=== PATIENT | female | born 1980 | race Caucasian/White ===

== ENCOUNTER 2017-05-26 12:18 | Emergency (ER) | payer SELFPAY ==
--- NOTE | 2017-05-26 14:42 | RAD ---
CHEST ONE VIEW: HISTORY: A 37-year-old female with cough, congestion, fever, and neck pain. COMPARISON: 12/28/2012 FINDINGS: Heart size is normal. There is an approximately 0.9 cm in diameter somewhat nodular opacity overlyi ng the left fifth anterior rib. It is conceivable that this could represent a confluence of shadows , but the possibility of a developing pulmonary nodule cannot be excluded. This was not seen on truong or chest films. No pleural effusion. No evidence for pneumonia. IMPRESSION: 1. No evidence for pneumonia or pleural effusion. 2. An approximately 0.9 cm in diameter potential pulmonary nodule over the left lower mid lung zone , overlying the left fifth anterior rib. Consider short-term follow-up upright PA and lateral chest. If this nodular density persists on amber t study, then a follow-up chest CT scan would probably be indicated. POS: [facility]
[2017-05-26] MEDS ORDERED: Azithromycin 250 MG TAB ONE (15:08)
[2017-05-26] MEDS ORDERED: Acetaminophen 500 MG TAB ONE (15:08)
== END 2017-05-26 16:59 | disposition home or self-care (01) ==
LOC: ERS 12:18
DX: J40 Bronchitis, not specified as acute or chronic (principal); E86.0 Dehydration; R91.1 Solitary pulmonary nodule; F32.9 Major depressive disorder, single episode, unspecified
CPT/HCPCS: 71010; 87081; 87430; 93005; 96360

== ENCOUNTER 2017-10-29 19:13 | Emergency (ER) | payer SELFPAY ==
[2017-10-29 19:40] LABS: #Basophils 0.1 thou/uL (0.0-0.2); #Eosinphils 0.3 thou/uL (0.0-0.7); #Lymphocytes 3.3 thou/uL (1.20-3.40); #Monocytes 0.8 thou/uL (0.11-0.59); #Neutrophils 7.5 thou/uL (1.40-6.50); %Basophils 1.1 % (0.0-1.0); %Eosinophils 2.1 % (0.0-10.0); %Lymphocytes 27.8 % (21.0-51.0); %Monocytes 6.7 % (0.0-10.0); %Neutrophils 62.2 % (42.0-75.0); Hemoglobin 14.7 g/dL (12.0-16.0); Mean Corpuscular HGB CONC 35.4 g/dL (32.0-36.0); Mean Corpuscular Hemoglobin 31.6 pg (27.0-31.0); Mean Corpuscular Volume 89.3 fl (81.0-99.0); Mean Platelet Volume 6.8 fL (7.4-10.4); Platelet Count 333 thou/uL (130-400); RBC Distribution Width 11.6 % (11.5-14.5); Red Blood Cell (RBC) Count 4.65 mill/uL (4.20-5.40)
[2017-10-29 20:03] LABS: ALT (SGPT) 28 U/L (8-55); AST (SGOT) 18 U/L (5-34); Albumin 4.3 g/dL (3.5-5.0); Alkaline Phosphatase 70 U/L (40-150); Anion Gap 14 mmol/L (10-20); BUN (Urea Nitrogen) 10 mg/dL (7.0-18.7); Bilirubin, Total 0.3 mg/dL (0.2-1.2); CK (CPK) 65 U/L (29-168); Calc. Creatinine Clearance 0 mL/min (70-130); Calcium 9.9 mg/dL (7.8-10.44); Carbon Dioxide 25 mmol/L (22-29); Chloride 104 mmol/L (98-107); Estimated GFR-MDRD 80; Globulin 3.2 g/dL (2.4-3.5); Glucose 102 mg/dL (70-105); Potassium 3.9 mmol/L (3.5-5.1); Protein, Total 7.5 g/dL (6.0-8.3); Sodium 139 mmol/L (136-145)
--- NOTE | 2017-10-29 20:03 | RAD ---
AP VIEW OF THE CHEST: 10/29/17 INDICATION: Fall with right shoulder pain. FINDINGS: The lungs are clear. Cardiomediastinal silhouette is within normal limits. No acute osseous abnormali ty is evident. Left costophrenic angle is excluded. IMPRESSION: No acute cardiopulmonary abnormality. POS: [facility]
[2017-10-29 20:08] LABS: CKMB 0.7 ng/mL (0-6.6); Troponin I Less than 0.010 ng/mL (< 0.028)
[2017-10-29] MEDS ORDERED: Acetaminophen 500 MG TAB ONE (20:13)
[2017-10-29 20:22] LABS: BHCG - Serum Negative (NEGATIVE); Pregs Control Background? CLEAR/WHITE (CLR/WHITE); Pregs Control Bar Appear? YES (CONTROL BAR)
[2017-10-29] MEDS ORDERED: Ketorolac Tromethamine 30 MG/ML VIAL ONE (20:59)
--- NOTE | 2017-11-07 00:26 | EKG ---
Test Reason : Blood Pressure : / mmHG Vent. Rate : 081 BPM Atrial Rate : 081 BPM P-R Int : 168 ms QRS Dur : 082 ms QT Int : 376 ms P-R-T Axes : 027 012 009 degrees QTc Int : 436 ms Normal sinus rhythm Nonspecific T wave abnormality Abnormal ECG Confirmed by IMANI FRENCH ([id number]), photography editor VARGAS SYED ([id number]) on 11/07/2017 12:25:08 AM Referred By: Confirmed By:IMANI FRENCH
== END 2017-10-29 21:41 | disposition home or self-care (01) ==
LOC: ERS 19:13
DX: R07.89 Other chest pain (principal); J40 Bronchitis, not specified as acute or chronic; F32.9 Major depressive disorder, single episode, unspecified
CPT/HCPCS: 71045; 80053; 82550; 82553; 84484; 84703; 85025; 85379; 93005; 96374; J1885

== ENCOUNTER 2017-12-20 14:19 | Outpatient (CLI) | payer BC, OTHER | END 2017-12-20 14:20 | disposition home or self-care (01) | LOC: BICCT 14:19 | PROVIDERS: ATTEND Internal Medicine Pulmonary Disease | DX: R91.8 Other nonspecific abnormal finding of lung field (principal) | CPT/HCPCS: 71250 ==

== ENCOUNTER 2018-04-19 22:28 | Emergency (ER) | payer BC ==
--- NOTE | 2018-04-19 23:16 | RAD ---
AP VIEW CHEST: 04/19/18 HISTORY: Headache, fever, congestion, cough. AP view chest is obtained on 04/19/18. Comparison made to previous exam from 10/29/17. AP view chest demonstrates the lungs to be well aerated. No evidence of active intrathoracic disease seen. No evidence of effusions, pneumonia or pneumothorax seen. IMPRESSION: Unremarkable AP view chest. POS: [facility]
== END 2018-04-20 00:30 | disposition home or self-care (01) ==
LOC: ERS 22:28
DX: J06.9 Acute upper respiratory infection, unspecified (principal)
CPT/HCPCS: 71045

== ENCOUNTER 2018-07-05 19:40 | Emergency (ER) | payer BC ==
[2018-07-05] MEDS ORDERED: Diabetic Tussin DM 5 ML UDCUP PO SCH (20:30)
[2018-07-05 20:44] LABS: #Basophils 0.1 thou/uL (0.0-0.2); #Eosinphils 0.3 thou/uL (0.0-0.7); #Monocytes 1.1 thou/uL (0.11-0.59); #Neutrophils 9.8 thou/uL (1.40-6.50); %Basophils 0.6 % (0.0-1.0); %Eosinophils 1.7 % (0.0-10.0); %Lymphocytes 26.4 % (21.0-51.0); %Neutrophils 64.4 % (42.0-75.0); Hemoglobin 14.7 g/dL (12.0-16.0); Mean Corpuscular HGB CONC 35.8 g/dL (32.0-36.0); Mean Corpuscular Hemoglobin 32.6 pg (27.0-31.0); Mean Corpuscular Volume 91.1 fL (78.0-98.0); Platelet Count 353 thou/uL (130-400); RBC Distribution Width 11.8 % (11.5-14.5); Red Blood Cell (RBC) Count 4.51 mill/uL (4.20-5.40); White Blood Cell (WBC) Count 15.2 thou/uL (4.8-10.8)
--- NOTE | 2018-07-05 20:49 | RAD ---
RADIOGRAPH CHEST 2 VIEWS: 07/05/18 HISTORY: 38-year-old female with cough and fever. FINDINGS: The lungs are clear. The cardiomediastinal silhouette and hilar shadows are normal. There is no ple ural effusion. The osseous structures appear normal. There is no pneumothorax. IMPRESSION: Normal. jn [] POS: [facility]
[2018-07-05 21:07] LABS: ALT (SGPT) 18 U/L (8-55); AST (SGOT) 13 U/L (5-34); Alkaline Phosphatase 67 U/L (40-150); Anion Gap 13 mmol/L (10-20); BUN (Urea Nitrogen) 12 mg/dL (7.0-18.7); Bilirubin, Total 0.2 mg/dL (0.2-1.2); Calc. Creatinine Clearance 0 mL/min (70-130); Calcium 9.6 mg/dL (7.8-10.44); Carbon Dioxide 25 mmol/L (22-29); Chloride 105 mmol/L (98-107); Estimated GFR-MDRD 79; Globulin 3.3 g/dL (2.4-3.5); Glucose 119 mg/dL (70-105); Potassium 3.5 mmol/L (3.5-5.1); Protein, Total 7.3 g/dL (6.0-8.3); Sodium 139 mmol/L (136-145)
--- NOTE | 2018-07-09 12:06 | EKG ---
Test Reason : ER INDICATION Blood Pressure : / mmHG Vent. Rate : 078 BPM Atrial Rate : 078 BPM P-R Int : 162 ms QRS Dur : 090 ms QT Int : 398 ms P-R-T Axes : 034 008 010 degrees QTc Int : 453 ms Normal sinus rhythm Nonspecific T wave abnormality Abnormal ECG Confirmed by SYLVIE HERRERA DO ([id number]), newspaper copy editor MEIR MOLINA ([id number]) on 07/09/2018 12:05:59 PM Referred By: ERMD Confirmed By:SYLVIE HERRERA DO
== END 2018-07-05 22:35 | disposition home or self-care (01) ==
LOC: ERS 19:40
DX: J01.90 Acute sinusitis, unspecified (principal); J20.9 Acute bronchitis, unspecified; F32.9 Major depressive disorder, single episode, unspecified
CPT/HCPCS: 36415; 71046; 80053; 84484; 85025; 87804; 93005

== ENCOUNTER 2018-11-01 12:58 | Outpatient (CLI) | payer BC ==
[~2018-11-01 12:58] MED LIST: ISOVUE-370 76%-LOCM 1 ML ONE
--- NOTE | 2018-11-01 15:35 | CT ---
CT CHEST WITH IV CONTRAST: HISTORY: Lung nodules, multiple, followup. COMPARISON: 12/20/2017. FINDINGS: Prominent nodule in the prevascular space in the mediastinum measuring 17 mm in largest dimension and stable. No pleural or pericardial effusions are seen. There is a 7 mm nodule in the posterior aspe ct of the right upper lobe close to the apex which is stable. Inferior to this in the anterior aspec t of the right lobe is a stable 6 mm nodule. A 9 mm peripheral nodule in the lingula and peripheral 7 mm nodule in the left lower lobe is also sta ble. No new nodules are seen. Upper abdominal tomograms are unremarkable. There are mild degenerative ch anges in the spine. IMRESSION: Stable exam. Six-month followup is recommended. POS: [facility]
== END 2018-11-01 12:59 | disposition home or self-care (01) ==
LOC: BICCT 12:58
PROVIDERS: ATTEND Family Medicine
DX: R91.8 Other nonspecific abnormal finding of lung field (principal)
CPT/HCPCS: 71260; Q9966

== ENCOUNTER 2018-12-13 11:43 | Emergency (ER) | payer BC ==
[2018-12-13 13:27] LABS: #Basophils 0.1 thou/uL (0.0-0.2); #Eosinphils 0.4 thou/uL (0.0-0.7); #Lymphocytes 2.6 thou/uL (1.20-3.40); #Monocytes 0.8 thou/uL (0.11-0.59); #Neutrophils 7.2 thou/uL (1.40-6.50); %Basophils 0.8 % (0.0-1.0); %Eosinophils 3.9 % (0.0-10.0); %Lymphocytes 23.5 % (21.0-51.0); %Monocytes 6.8 % (0.0-10.0); Hemoglobin 14.1 g/dL (12.0-16.0); Mean Corpuscular Hemoglobin 31.6 pg (27.0-31.0); Mean Corpuscular Volume 93.1 fL (78.0-98.0); Mean Platelet Volume 6.9 fL (7.4-10.4); Platelet Count 328 thou/uL (130-400); RBC Distribution Width 11.4 % (11.5-14.5); Red Blood Cell (RBC) Count 4.47 mill/uL (4.20-5.40)
[2018-12-13 13:53] LABS: ALT (SGPT) 19 U/L (8-55); AST (SGOT) 13 U/L (5-34); Albumin 3.8 g/dL (3.5-5.0); Alkaline Phosphatase 60 U/L (40-150); Anion Gap 11 mmol/L (10-20); BUN (Urea Nitrogen) 12 mg/dL (7.0-18.7); Bilirubin, Total 0.4 mg/dL (0.2-1.2); Calc. Creatinine Clearance 0 mL/min (70-130); Calcium 9.6 mg/dL (7.8-10.44); Carbon Dioxide 25 mmol/L (22-29); Chloride 106 mmol/L (98-107); Estimated GFR-MDRD 88; Globulin 2.9 g/dL (2.4-3.5); Glucose 92 mg/dL (70-105); Lipase 10 U/L (8-78); Protein, Total 6.7 g/dL (6.0-8.3); Sodium 138 mmol/L (136-145)
[2018-12-13] MEDS ORDERED: Proparacaine 0.5% Opth 15 ML BOT ONE (14:25)
[2018-12-13] MEDS ORDERED: Fluorescein Opthalmic Strip ONE (14:25)
[2018-12-13 14:56] LABS: Bilirubin Negative (Negative); Blood, Urine Negative (Negative); Clarity CLEAR (Clear); Glucose, Urine (Dipstick) Negative (Negative); Leukocyte Negative (Negative); Nitrite Negative (Negative); Protein, Urine (Dipstick) Negative (Neg-Trace); pH, Urine 7.5 (5.0-9.0)
== END 2018-12-13 15:27 | disposition home or self-care (01) ==
LOC: ERS 11:43
DX: H10.9 Unspecified conjunctivitis (principal); L53.9 Erythematous condition, unspecified; F32.9 Major depressive disorder, single episode, unspecified; Z79.891 Long term (current) use of opiate analgesic
CPT/HCPCS: 36415; 80053; 81003; 83690; 85025; 99283

== ENCOUNTER 2019-05-06 21:45 | Emergency (ER) | payer BC, SELFPAY ==
[2019-05-06] MEDS ORDERED: Acetaminophen 500 MG TAB ONE (23:26)
[2019-05-06] MEDS ORDERED: Ketorolac Tromethamine 30 MG/ML VIAL ONE (23:26)
[2019-05-06] MEDS ORDERED: cefTRIAXone\\ROCEPHIN 2 GM VIAL ONE (23:26)
[2019-05-07] MEDS ORDERED: Dexamethasone 10 MG/ML VIAL ONE (01:15)
[2019-05-07 01:21] LABS: Bacteria/HPF None Seen HPF (None Seen); Bilirubin Negative (Negative); Blood, Urine Trace (Negative); Clarity Clear (Clear); Glucose, Urine (Dipstick) Normal (Negative); Leukocyte Negative Leu/uL (Negative); Nitrite Negative (Negative); Protein, Urine (Dipstick) 30 mg/dL (Neg-Trace); RBC/HPF 0-3 HPF (0-3); Squamous Epithelial 0-3 HPF (0-3); Urobilinogen 3 mg/dL (Less than 2); WBC/HPF 0-3 HPF (0-3)
== END 2019-05-07 02:24 | disposition home or self-care (01) ==
LOC: ERS 21:45
DX: J02.0 Streptococcal pharyngitis (principal); E86.0 Dehydration; F32.9 Major depressive disorder, single episode, unspecified; Z79.899 Other long term (current) drug therapy
CPT/HCPCS: 81003; 81015; 87430; 87804; 96361; 96365; 96375; J0696; J1100; J1885

== ENCOUNTER 2019-07-20 20:17 | Emergency (ER) | payer SELFPAY ==
--- NOTE | 2019-07-20 21:46 | CT ---
CT CERVICAL SPINE WITHOUT CONTRAST: 07/20/19 INDICATION: Neck pain. Cervical vertebrae maintain normal height and alignment. Mild degenerative spurring. Mild disc space narrowing at C5-6 and C6-7. No fracture. No subluxation. No evidence of disc protrusion. Mild spondyl osis at C3-4, C4-5, C5-6 level is seen flattening the thecal sac and effacing the anterior subarachno id space. IMPRESSION: Mild spondylolytic change. No fracture or acute abnormality. POS: [facility]
== END 2019-07-20 22:15 | disposition home or self-care (01) ==
LOC: ERS 20:17
DX: M47.812 Spondylosis without myelopathy or radiculopathy, cervical region (principal); J01.90 Acute sinusitis, unspecified; F32.9 Major depressive disorder, single episode, unspecified
CPT/HCPCS: 72125; 87804

== ENCOUNTER 2019-10-10 21:08 | Emergency (ER) | payer SELFPAY ==
--- NOTE | 2019-10-10 21:59 | RAD ---
XR Chest Pa Lat STANDARD HISTORY: Cough. COMPARISON: 07/05/2018 study. FINDINGS: Heart size and mediastinum are within normal limits. The lungs are clear of infiltrates. No bony findings. IMPRESSION: No active intrathoracic disease.
== END 2019-10-10 22:10 | disposition home or self-care (01) ==
LOC: ERS 21:08
DX: J06.9 Acute upper respiratory infection, unspecified (principal); F41.9 Anxiety disorder, unspecified
CPT/HCPCS: 71046